=== PATIENT | female | born 1965 | race Caucasian/White ===

== ENCOUNTER 2018-08-11 19:33 | Inpatient (IN) | payer OTHER ==
[~2018-08-11] VITALS: Ht 152.4 cm; Wt 136.1 kg
[2018-08-11] MEDS ORDERED: TIROSINT25 MCG (19:57)
--- NOTE | 2018-08-11 19:58 | NUR ---
PTE SE RECIBE POR ABDOMINAL PAIN Y VOMITO REFIERE PTE.
--- NOTE | 2018-08-11 21:40 | NUR ---
SE ORIENTA A PTE SOBRE PROCESO DE ALFIE DE MUESTRAS, ADMINISTRACION DE MEDS IV Y ESTUDIO A REALIZAR. PTE PRESENTA VENOPUNCION COLOCADA POR PERSONAL DE PARAMEDICOS.
--- NOTE | 2018-08-12 08:12 | NUR ---
SE RECIBE PTE DEL TURNO ANTERIOR, ALERTA Y ORIENTADA X 3 ESFERAS, EN ARMANDO NIVEL MAS BAJO, MATTHEWS DE IDENIFICACION Y BARANDAS ELEVADAS POR PRECAUCION. SE OBSERVA CON BUEN PATRON RESPIRATORIO Y PIEL TIBIA AL TACTO. IV PATENTE Y ELIANE DE EDEMA O ERITEMA CON RINGER LACTATE @ 100ML/HR. PTE PENDIENTE A ENTREGAR U/A.
--- NOTE | 2018-08-12 10:00 | NUR ---
PTE ANDO 85% SE NOTIFICA A DR DELA CRUZ.
--- NOTE | 2018-08-12 10:12 | NUR ---
PTE.ANDO SE NOTIFICA SUZI RICHMOND PARA NOTIFICAR A MEDICO EN TURNO
--- NOTE | 2018-08-12 16:02 | NUR ---
SE RECIBE PTE ALERTA EN ARMANDO CON BARANDAS ELEVADAS. SE RECIBE PTE CONECTA A MONITOR CARDIACO Y OXIMETRIA. SE RECIBE PTE CON VENTURY AL 50%, SE RECIBE PTE CANALIZADA AREAS LIBRES DE EDEMA Y DE ENROJECIMIENTO. PTE EN ESPERA DE CONSULTA CON .
== END 2018-08-21 10:26 | disposition home or self-care (01) | DRG 194 ==
LOC: ER 19:33 → SEC-K 08-12 17:05 → SURH 08-13 04:53
PROVIDERS: ADMIT Internal Medicine
PROC: 8E0ZXY6 Isolation (ICD-10-PCS; principal; 2018-08-12)
PROC: 4A033R1 Measurement of Arterial Saturation, Peripheral, Percutaneous Approach (ICD-10-PCS; 2018-08-12)
PROC: BW21ZZZ Computerized Tomography (CT Scan) of Abdomen and Pelvis (ICD-10-PCS; 2018-08-12)
PROC: 3E0F7GC Introduction of Other Therapeutic Substance into Respiratory Tract, Via Natural or Artificial Opening (ICD-10-PCS; 2018-08-12)
PROC: 02HV33Z Insertion of Infusion Device into Superior Vena Cava, Percutaneous Approach (ICD-10-PCS; 2018-08-14)
PROC: BW21ZZZ Computerized Tomography (CT Scan) of Abdomen and Pelvis (ICD-10-PCS; 2018-08-20)
DX: J09.X2 Influenza due to identified novel influenza A virus with other respiratory manifestations (principal); J44.1 Chronic obstructive pulmonary disease with (acute) exacerbation; Z87.891 Personal history of nicotine dependence; R09.02 Hypoxemia